=== PATIENT | male | born 2000 | race Caucasian/White ===

== ENCOUNTER 2023-09-30 06:17 | Emergency (ER) | payer BC ==
[2023-09-30] MEDS ORDERED: Boostrix 0.5 ML (Tdap) VIAL (>/=7 yrs of age) ONE (06:46)
[2023-09-30] MEDS ORDERED: Lidocaine 1% (PF) 30 ML VIAL ONE (07:25)
[2023-09-30] MEDS ORDERED: Bacitracin 1 PK ONE (08:32)
== END 2023-09-30 08:40 | disposition home or self-care (01) ==
LOC: CSHERS 06:17
DX: S61.217A Laceration without foreign body of left little finger without damage to nail, initial encounter (principal); W25.XXXA Contact with sharp glass, initial encounter; Z23 Encounter for immunization
CPT/HCPCS: 12001; 90471; 90715; J2001